=== PATIENT | female | born 1955 | race Caucasian/White ===

== ENCOUNTER 2017-12-20 17:32 | Inpatient (IN) | payer OTHER ==
[~2017-12-20] VITALS: Ht 167.6 cm; Wt 59.4 kg
--- NOTE | ~2017-12-20 | EKG ---
[address] [address] ELECTROCARDIOGRAM REPORT Name: BONDJITENDRA Room #: 222-P ADM IN M.R.#: [id number] Admission: 12/20/17 Attend Phys: Laurie Petit Discharge: Date of : 59 Report #: [id number] THIS REPORT FOR: //name// [facility] ED Test Date: 2017-12-20 Test Time: 18:38:37 Pat Name: JITENDRA BOND Department: Room: 222 Gender: F [employer] Principal: lynda : 1955 Requested By: Nate Gunn Order Number: [id number] MD: Lorenzo Bell Measurements Intervals [place] Rate: 68 P: 51 KS: 194 QRS: 71 QRSD: 95 T: 59 QT: 447 QTc: 476 Interpretive Statements Sinus rhythm Probable left atrial enlargement No previous ECG available for comparison Electronically Signed On 12-25-2017 16:56:40 CDT by Lorenzo Bell [email or web address] <ELECTRONICALLY SIGNED> By: Lorenzo Bell MD 12/25/17 1656 [id number] 183 Lorenzo Bell MD /BAY
[2017-12-20 17:32] VITALS: BP 164/86
[~2017-12-20 17:32] MED LIST: APAP650 PO; CALCIUM 600 +1 EAC1 PO; CARISOPRODOL 3350 MG PO; CEFTIN 250 MG250 MG PO; COLACE100 MG PO; CYMBALTA20 MG; CYMBALTA30 MG PO; DURAGESIC1 EAC2; FENTANYL PA12 MCG/H1 TRANSDERM; FERREX 150 FOR1 EAC1 PO; LYRICA 75 MG CA75 MG PO; NORCO 5-325 TA1 EACH PO; PERCOCET 5-3251 EACH PO; PERCOCET PO; PHENERGAN 25 MG25 M1 PO; PRISTIQ50 MG PO; PROTONIX40 M2 PO; SLOW-MAG64 M1 PO; TRAMADOL 50 MG50 MG PO; TYLENOL325 MG PO; VITAMIN D1000 UNI2 PO; XARELTO10 MG PO
[2017-12-20] MEDS ORDERED: MOBIC15 MG PO (17:47)
[2017-12-20] MEDS ORDERED: REGLAN 10 MG TA10 MG PO (17:47)
[2017-12-20] MEDS ORDERED: ZOFRAN ODT4 MG PO (17:47)
[2017-12-20 17:59] LABS: ABSOLUTE NEUTROPHILS 8.5 thou/uL (1.4-8.2); BASOPHILS 1.7 % (0.0-2.0); EOSINOPHILS 0.8 % (0.0-3.0); HEMATOCRIT 39.4 % (37.0-47.0); HEMOGLOBIN 13.4 gm/dL (12.0-15.0); LYMPHOCYTES 29.8 % (24.0-44.0); MCH 29.2 pg (26.0-34.0); MONOCYTES 10.7 % (1.0-8.0); PLATELET COUNT 308 thou/uL (150-400); RBC 4.57 mil/uL (4.20-5.00); RDW 15.7 % (10.5-14.5); WBC 14.8 thou/uL (4.0-11.0)
[2017-12-20 18:12] LABS: ANION GAP 10 mmol/L (7-16); BUN 11 mg/dL (7-18); CALCIUM 10.3 mg/dL (8.5-10.1); CHLORIDE 101 mmol/L (98-107); CO2 29 mmol/L (21-32); CREATININE 0.9 mg/dL (0.6-1.0); GLUCOSE 128 mg/dL (74-106); SODIUM 140 mmol/L (136-145)
[2017-12-20 18:21] LABS: ALBUMIN 3.9 g/dL (3.4-5.0); LIPASE 501 U/L (73-393); SGOT 20 U/L (15-37); SGPT 21 U/L (30-65); TOTAL BILIRUBIN 0.6 mg/dL (<0.1-1.0); TOTAL PROTEIN 7.8 g/dL (6.4-8.2); TROPONIN-I <0.06 ng/mL (<0.06)
[2017-12-20] MEDS ORDERED: VITAMIN D5000 UNIT PO (18:46)
[2017-12-20] MEDS ORDERED: TUMS PO (18:48)
[2017-12-20] MEDS ORDERED: ASPIR 8181 MG PO (18:48)
[2017-12-20] MEDS ORDERED: TRAMADOL 50 MG50 MG PO (18:49)
[2017-12-20] MEDS ORDERED: TIZANIDINE HCL4 M1 PO (18:49)
[2017-12-20] MEDS ORDERED: ALENDRONATE SOD35 MG PO (18:51)
[2017-12-20 19:25] LABS: URINE BILIRUBIN NEGATIVE (Negative); URINE BLOOD 2+ (Negative); URINE CLARITY CLEAR; URINE COLOR YELLOW; URINE GLUCOSE-RANDOM* NEGATIVE (Negative); URINE KETONES TRACE (Negative); URINE PROTEIN (DIPSTICK) TRACE (Negative); URINE SPECIFIC GRAVITY 1.025 (1.005-1.035); URINE UROBILINOGEN 0.2 E.U./dl (0.2-1.0)
[2017-12-20 19:27] LABS: URINE LEUKOCYTES-REFLEX TRACE (Negative); URINE NITRITE-REFLEX POSITIVE (Negative)
[2017-12-20 19:38] LABS: AMORPHOUS URATES Many /LPF (None Seen); HYALINE CASTS 0-3 Few /LPF (None Seen); SQUAMOUS 0-3 Few /LPF (0-3); URINE RBC 3-10 Few /HPF (0-2)
[2017-12-20 21:35] VITALS: BP 115/72
[2017-12-20 22:21] VITALS: BP 127/60
[2017-12-20] MEDS ORDERED: MELATONIN5 M1 PO (22:45)
[2017-12-21 00:08] VITALS: BP 124/96
[2017-12-21 03:02] VITALS: BP 177/82
[2017-12-21 05:00] VITALS: BP 136/71
[2017-12-21 05:21] LABS: CREATININE 0.6 mg/dL (0.6-1.0); MAGNESIUM 1.6 mg/dL (1.8-2.4); POTASSIUM 3.2 mmol/L (3.5-5.1)
[2017-12-21 05:24] LABS: HEMATOCRIT 38.7 % (37.0-47.0); HEMOGLOBIN 13.1 gm/dL (12.0-15.0); MCH 29.3 pg (26.0-34.0); MCHC 33.8 g/dL (28.0-37.0); MCV 86.7 fL (80.0-100.0); RBC 4.47 mil/uL (4.20-5.00); WBC 13.6 thou/uL (4.0-11.0)
[2017-12-21 07:30] VITALS: BP 135/68
[2017-12-21 14:50] VITALS: BP 114/63
[2017-12-21 19:16] VITALS: BP 126/57
[2017-12-22 05:02] VITALS: BP 130/60
[2017-12-22 06:09] LABS: HEMATOCRIT 33.1 % (37.0-47.0); MCH 29.4 pg (26.0-34.0); MCHC 33.4 g/dL (28.0-37.0); RBC 3.76 mil/uL (4.20-5.00); RDW 15.6 % (10.5-14.5); WBC 19.6 thou/uL (4.0-11.0)
[2017-12-22 06:31] LABS: ALBUMIN 2.7 g/dL (3.4-5.0); CALCIUM 8.4 mg/dL (8.5-10.1); CREATININE 0.6 mg/dL (0.6-1.0); PHOSPHORUS 2.2 mg/dL (2.5-4.9)
[2017-12-22 06:40] LABS: POTASSIUM 2.7 mmol/L (3.5-5.1)
[2017-12-22 07:54] VITALS: BP 143/83
[2017-12-22 15:50] VITALS: BP 145/74
[2017-12-22 20:00] VITALS: BP 139/70
[2017-12-23 04:12] VITALS: BP 128/94
[2017-12-23 04:39] LABS: HEMATOCRIT 30.7 % (37.0-47.0); HEMOGLOBIN 10.1 gm/dL (12.0-15.0); MCH 28.8 pg (26.0-34.0); MCHC 32.9 g/dL (28.0-37.0); MCV 87.5 fL (80.0-100.0); RBC 3.51 mil/uL (4.20-5.00); RDW 16.1 % (10.5-14.5); WBC 15.7 thou/uL (4.0-11.0)
[2017-12-23 04:50] LABS: CALCIUM 8.3 mg/dL (8.5-10.1); CREATININE 0.5 mg/dL (0.6-1.0); MAGNESIUM 1.6 mg/dL (1.8-2.4)
[2017-12-23 04:52] LABS: POTASSIUM 2.9 mmol/L (3.5-5.1)
[2017-12-23 07:33] VITALS: BP 129/78
[2017-12-23 12:31] VITALS: BP 141/77
[2017-12-23 20:00] VITALS: BP 142/80
[2017-12-24 08:00] VITALS: BP 152/86
[2017-12-24 19:51] VITALS: BP 141/75
[2017-12-25 07:35] VITALS: BP 135/72
[2017-12-25 07:35] LABS: HEMATOCRIT 31.4 % (37.0-47.0); HEMOGLOBIN 10.5 gm/dL (12.0-15.0); MCHC 33.6 g/dL (28.0-37.0); MCV 86.5 fL (80.0-100.0); RBC 3.63 mil/uL (4.20-5.00); RDW 15.5 % (10.5-14.5); WBC 11.7 thou/uL (4.0-11.0)
[2017-12-25 07:52] LABS: ALBUMIN 2.4 g/dL (3.4-5.0); CALCIUM 8.3 mg/dL (8.5-10.1); CREATININE 0.6 mg/dL (0.6-1.0); MAGNESIUM 1.5 mg/dL (1.8-2.4); PHOSPHORUS 2.7 mg/dL (2.5-4.9)
[2017-12-25 07:53] LABS: POTASSIUM 2.4 mmol/L (3.5-5.1)
[2017-12-25 21:05] VITALS: BP 153/82
[2017-12-26 01:30] LABS: URINE POTASSIUM-mEq/L 15.9 mmol/L
[2017-12-26 07:45] VITALS: BP 124/71
[2017-12-26] MEDS ORDERED: KEFLEX500 M1 PO (10:43)
[2017-12-26] MEDS ORDERED: FLAGYL500 MG PO (10:43)
[2017-12-26 13:49] VITALS: BP 124/71
== END 2017-12-26 14:45 | disposition home or self-care (01) | DRG 871 ==
LOC: ER 17:32 → 4W 20:27 → SICU 20:27 → EROBS 20:27 → 4W 21:55 → SICU 12-23 12:14 → ENTRNSPT 12-26 14:06 → EDTRNSPTSTS 12-26 14:15 → SICU 12-26 14:45
PROVIDERS: Hospitalist; Nurse Practitioner Acute Care; Physician Assistant
DX: A41.9 Sepsis, unspecified organism (principal); E43 Unspecified severe protein-calorie malnutrition; N39.0 Urinary tract infection, site not specified; E87.6 Hypokalemia; E83.42 Hypomagnesemia; K52.9 Noninfective gastroenteritis and colitis, unspecified; B96.20 Unspecified Escherichia coli [E. coli] as the cause of diseases classified elsewhere; Z96.643 Presence of artificial hip joint, bilateral; Z88.6 Allergy status to analgesic agent; Z88.8 Allergy status to other drugs, medicaments and biological substances; Z90.49 Acquired absence of other specified parts of digestive tract; Z90.81 Acquired absence of spleen; Z90.710 Acquired absence of both cervix and uterus; Z85.038 Personal history of other malignant neoplasm of large intestine; Z79.1 Long term (current) use of non-steroidal anti-inflammatories (NSAID); Z79.82 Long term (current) use of aspirin; Z79.899 Other long term (current) drug therapy; Z92.21 Personal history of antineoplastic chemotherapy; Z92.3 Personal history of irradiation; Z87.891 Personal history of nicotine dependence; Z68.21 Body mass index [BMI] 21.0-21.9, adult
CPT/HCPCS: 10040; 15002